=== PATIENT | female | born 1990 | race Caucasian/White ===

== ENCOUNTER → 2019-03-31 | Outpatient (CLI) | payer BC ==
--- NOTE | 2019-04-01 07:45 | XR ---
EXAMINATION TYPE: XR thoracic spine 2V DATE OF EXAM: 03/31/2019 CLINICAL HISTORY: Back pain for 2 weeks with no known injury TECHNIQUE: Frontal, lateral, and swimmer's view of thoracic spine are obtained. COMPARISON: None. FINDINGS: Levoscoliosis is seen of the thoracolumbar junction. Thoracic spine show satisfactory align ment without evidence of acute fracture or dislocation. Vertebral body heights and disc space height s are preserved. Very small anterior osteophytes are seen at multiple levels in the thoracic spine. V isualized ribs are unremarkable. IMPRESSION: No acute fracture or dislocation is seen in the thoracic spine. Mild multilevel degenera tive disease of the thoracic spine and mild levoscoliosis of the thoracolumbar junction.
--- NOTE | 2019-04-01 07:47 | XR ---
EXAMINATION TYPE: XR lumbar spine 2 or 3V DATE OF EXAM: 03/31/2019 CLINICAL HISTORY: Back pain for 2 no known injury TECHNIQUE: Frontal and lateral images of the lumbar spine are obtained. COMPARISON: Thoracic spine x-rays of the same date. FINDINGS: There are 5 lumbar type vertebral bodies identified. Partial visualization of the levosco liosis of the thoracolumbar junction is seen in the thoracic spine x-rays of the same date. There is a dextroscoliosis of the lumbar spine. Mild intervertebral disc space narrowing at L5-S1 there is sma ll osteophytes. The lumbar spine shows satisfactory alignment without evidence of acute fracture or d islocation. Vertebral body heights are maintained. IMPRESSION: 1. No acute fracture or malalignment is seen in the lumbar spine. 2. Mild degenerative disc disease at L5-S1. 3. Dextroscoliosis of the lumbar spine.
== END | disposition home or self-care (01) ==
LOC: RADXRMAIN 17:22
PROVIDERS: ATTEND Family Medicine
DX: M51.34 Other intervertebral disc degeneration, thoracic region (principal); M51.37 Other intervertebral disc degeneration, lumbosacral region; M41.86 Other forms of scoliosis, lumbar region
CPT/HCPCS: 72070; 72100

== ENCOUNTER 2019-09-29 18:42 | Emergency (ER) | payer OTHER, BC ==
[2019-09-29 18:56] VITALS: BP 128/83; PULSE 68; RESP 18; TEMP 98.6
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
== END 2019-09-29 19:54 | disposition home or self-care (01) ==
LOC: EC 18:42
DX: M54.6 Pain in thoracic spine (principal); M41.84 Other forms of scoliosis, thoracic region; V49.49XA Driver injured in collision with other motor vehicles in traffic accident, initial encounter; Y92.410 Unspecified street and highway as the place of occurrence of the external cause; Y93.89 Activity, other specified
CPT/HCPCS: 71045; 72072; 99284

== ENCOUNTER → 2022-12-28 | Outpatient (CLI) | payer BC ==
[2022-12-28 16:07] LABS: Thyroid Peroxidase Antibodies <9.0 U/mL (0.0-33.0)
[2022-12-28 16:43] LABS: ALT 16 U/L (8-44); AST 15 U/L (13-35); Blood Urea Nitrogen 10.6 mg/dL (9.0-27.0); Estradiol 26.9 pg/mL; Glucose 97 mg/dL (70-110); T4, Free (Free Thyroxine) 1.35 ng/dL (0.80-1.80)
[2022-12-28 17:09] LABS: HCG,Quantitative Serum <3.0 mIU/mL (0.0-6.0)
[2022-12-28 18:03] LABS: Insulin Level 5.5 mIU/mL (3.0-25.0)
[2022-12-28 21:04] LABS: Follicle Stimulating Hormone 6.3 mIU/mL
== END | disposition home or self-care (01) ==
LOC: LABWHC1 08:48
PROVIDERS: ATTEND Obstetrics & Gynecology Reproductive Endocrinology
DX: Z31.49 Encounter for other procreative investigation and testing (principal); N92.6 Irregular menstruation, unspecified
CPT/HCPCS: 36415; 82306; 82397; 82565; 82670; 82947; 83001; 83036; 83525; 84146; 84402; 84403; 84439; 84443; 84450; 84460; 84520; 84702; 86376; 86762; 86787; 86850; 86900; 86901

== ENCOUNTER → 2024-01-07 | Outpatient (CLI) | payer BC ==
[2024-01-07 13:04] LABS: ALT 13 U/L (4-34); AST 22 U/L (14-36); African American GFR (CKD) >90 (>60 ml/min/1.73 sqM); Blood Urea Nitrogen 15 mg/dL (7-17); Glucose 91 mg/dL (74-99); Non-African American GFR(CKD) >90 (>60 ml/min/1.73 sqM)
[2024-01-07 13:13] LABS: HCG,Qualitative Serum Not Detected
[2024-01-07 13:17] LABS: T4, Free (Free Thyroxine) 1.04 ng/dL (0.78-2.19)
[2024-01-07 17:21] LABS: Thyroid Peroxidase Antibodies <9.0 U/mL (0.0-33.0)
[2024-01-07 19:01] LABS: Insulin Level 9.9 mIU/mL (3.0-25.0)
[2024-01-07 20:04] LABS: Estradiol 34.9 pg/mL
== END | disposition home or self-care (01) ==
LOC: LABWHC1 12:18
PROVIDERS: ATTEND Obstetrics & Gynecology Reproductive Endocrinology
DX: Z31.49 Encounter for other procreative investigation and testing (principal)
CPT/HCPCS: 36415; 82306; 82397; 82565; 82670; 82947; 83001; 83036; 83525; 84146; 84402; 84403; 84439; 84443; 84450; 84460; 84480; 84520; 84703; 86376; 86765; 86787